=== PATIENT | female | born 1985 | race Caucasian/White ===

== ENCOUNTER 2016-08-27 10:52 | Emergency (ER) | payer OTHER ==
[2016-08-27 11:57] LABS: URINE BILIRUBIN NEGATIVE (NEGATIVE); URINE BLOOD NEGATIVE (NEGATIVE); URINE GLUCOSE (UA) NEGATIVE (NEGATIVE); URINE LEUKOCYTE ESTERASE TRACE (NEGATIVE); URINE NITRITE NEGATIVE (NEGATIVE); URINE PROTEIN 1+ (NEGATIVE); URINE UROBILINOGEN 1 mg/dL (0-1 mg/dl)
[2016-08-27 12:00] LABS: URINE APPEARANCE HAZY; URINE COLOR YELLOW
[2016-08-27 12:06] LABS: URINE BACTERIA FEW; URINE RBC RARE /hpf; URINE WBC RARE /hpf
[2016-08-27 12:08] LABS: ABSOLUTE NEUTROPHIL COUNT 11.1 K/mm3 (1.8-7.7); BASO # 0.1 K/mm3 (0.0-0.2); BASO % 0.5 % (0.2-1.0); EOS % 6.7 % (0.9-2.9); HEMATOCRIT 34.7 % (37.0-47.0); HEMOGLOBIN 11.6 gm/l (12.0-16.0); IMM NEUT # 0.1 K/mm3 (0-0.2); IMM NEUT% 0.7 % (0-1); LYMPH # 1.9 (1.0-4.8); LYMPH % 12.8 % (15-45); MEAN CELL VOLUME 91.1 fl (81.0-99.0); MEAN CORPUSCULAR HEMOGLOBIN 30.4 pg (27.0-31.0); MEAN CORPUSCULAR HGB CONC 33.4 g/dl (33.0-37.0); MEAN PLATELET VOLUME 9.8 fl (7.4-10.4); MONO # 0.7 (0.0-0.8); MONO % 4.9 % (4-12); NEUT % 74.4 % (43-75); PLATELET COUNT 239 K/mm3 (130-400)
[2016-08-27] MEDS ORDERED: ONDANSETRON 4 MG/2ML 2 ML VIAL ONE (12:13)
[2016-08-27] MEDS ORDERED: LACTATED RINGERS 1,000 ML ONE (12:13)
[2016-08-27 12:28] LABS: CALCIUM 9.1 mg/dL (8.6-10.3)
== END 2016-08-27 14:06 | disposition home or self-care (01) ==
LOC: ED 10:52
DX: E86.0 Dehydration (principal); R10.13 Epigastric pain; F17.210 Nicotine dependence, cigarettes, uncomplicated
CPT/HCPCS: 85025; 80048; 81001; 99283 ×2; 96374; 96361 ×2; J2405; J7120